=== PATIENT | female | born 1945 | race Caucasian/White ===

== ENCOUNTER 2019-01-25 22:03 | Inpatient (IN) | payer SELFPAY ==
[~2019-01-25] VITALS: Ht 160 cm; Wt 72.0 kg
[2019-01-25 23:26] LABS: BASOPHIL % 0.1 % (0-2); PLATELET COUNT 315 x10^3mcL (130-400); RED CELL DISTRIBUTION WIDTH 13.7 % (11.5-14.5)
[2019-01-25 23:28] LABS: CALCIUM 7.8 mg/dL (8.5-10.1); CARBON DIOXIDE 27.3 mmol/L (21-32); CHLORIDE SERUM 99 mmol/L (98-107); CREATININE SERUM 0.8 mg/dL (0.6-1.0); GLUCOSE SERUM 128 mg/dL (74-106); POTASSIUM SERUM 3.1 mmol/L (3.5-5.1); SODIUM SERUM 136 mmol/L (136-145)
[2019-01-25 23:33] LABS: ALT/SGPT 104 U/L (14-59); AST/SGOT 228 U/L (15-37); BILIRUBIN TOTAL 2.9 mg/dL (0.20-1.00); TOTAL PROTEIN, SERUM 6.6 g/dL (6.4-8.2)
[2019-01-25 23:37] LABS: ALBUMIN 2.5 g/dL (3.4-5.0); ALKALINE PHOSPHATASE 1335 U/L (46-116); CHOLESTEROL 133 mg/dL (<200); HDL CHOLESTEROL 14 mg/dL (40-60)
[2019-01-26 01:31] LABS: AMPHETAMINE QUAL UR NONE DETECTED (See below)
[2019-01-26 03:53] VITALS: BP 138/66
[2019-01-26 05:43] LABS: PLATELET COUNT 399 x10^3mcL (130-400); RED CELL DISTRIBUTION WIDTH 14.4 % (11.5-14.5)
[2019-01-26 05:54] LABS: CARBON DIOXIDE 24.9 mmol/L (21-32); CHLORIDE SERUM 107 mmol/L (98-107); CREATININE SERUM 0.7 mg/dL (0.6-1.0); GLUCOSE SERUM 143 mg/dL (74-106); MAGNESIUM 1.8 mg/dL (1.8-2.4); PHOSPHOROUS 3.5 mg/dL (2.5-4.9); POTASSIUM SERUM 4.3 mmol/L (3.5-5.1); SODIUM SERUM 140 mmol/L (136-145)
[2019-01-26 07:30] VITALS: BP 123/69
[2019-01-26 07:56] LABS: UA SPECIFIC GRAVITY <=1.005 (1.005-1.035); microscopic required? YES; urine erythrocyte TRACE (NEGATIVE)
[2019-01-26 08:17] VITALS: Ht 160 cm; Wt 72.0 kg
[2019-01-26 11:19] VITALS: BP 102/62
[2019-01-26 11:33] LABS: BILIRUBIN DIRECT 2.74 mg/dL (0.0-0.2)
[2019-01-26 11:36] LABS: ALBUMIN 2.1 g/dL (3.4-5.0)
[2019-01-26 12:18] LABS: BAND NEUTROPHIL 3 % (0-10); BASOPHIL 0 % (0-2); MONOCYTE 7 % (0-7); PLATELET MORPHOLOGY PLATELETS INCREASED; SEGMENTED NEUTROPHILS 85 % (37-75)
[2019-01-26 12:19] LABS: rbc morphology (normal/abnorm) ABNORMAL (NORMAL)
[2019-01-26 15:00] VITALS: BP 110/60
[2019-01-26 20:00] VITALS: BP 98/51
[2019-01-27] VITALS (7 sets, daily range): BP systolic 94–123; BP diastolic 47–56
[2019-01-27 05:46] LABS: BASOPHIL % 1.6 % (0-2); PLATELET COUNT 284 x10^3mcL (130-400); RED CELL DISTRIBUTION WIDTH 14.4 % (11.5-14.5)
[2019-01-27 05:52] LABS: CALCIUM 7.5 mg/dL (8.5-10.1); CARBON DIOXIDE 29.5 mmol/L (21-32); CHLORIDE SERUM 109 mmol/L (98-107); CREATININE SERUM 0.6 mg/dL (0.6-1.0); GLUCOSE SERUM 116 mg/dL (74-106); MAGNESIUM 1.7 mg/dL (1.8-2.4); PHOSPHOROUS 2.8 mg/dL (2.5-4.9); POTASSIUM SERUM 3.1 mmol/L (3.5-5.1); SODIUM SERUM 143 mmol/L (136-145)
[2019-01-28 05:28] VITALS: BP 113/47
[2019-01-28 06:24] LABS: BASOPHIL % 1.2 % (0-2); PLATELET COUNT 273 x10^3mcL (130-400)
[2019-01-28 06:27] LABS: RED CELL DISTRIBUTION WIDTH 14.6 % (11.5-14.5)
[2019-01-28 06:51] LABS: CALCIUM 7.8 mg/dL (8.5-10.1); CARBON DIOXIDE 26.4 mmol/L (21-32); CHLORIDE SERUM 108 mmol/L (98-107); CREATININE SERUM 0.5 mg/dL (0.6-1.0); GLUCOSE SERUM 143 mg/dL (74-106); MAGNESIUM 1.9 mg/dL (1.8-2.4); PHOSPHOROUS 3.4 mg/dL (2.5-4.9); POTASSIUM SERUM 3.5 mmol/L (3.5-5.1); SODIUM SERUM 141 mmol/L (136-145)
[2019-01-28 09:26] VITALS: BP 106/51
[2019-01-28 14:44] VITALS: BP 109/53
[2019-01-28] MEDS ORDERED: LEVOFLOXACIN500 M1 PO (15:28)
[2019-01-28 15:31] VITALS: BP 109/53
== END 2019-01-28 16:26 | disposition home or self-care (01) | DRG 871 ==
LOC: ED 22:03 → IC 01-26 01:14 → DU 01-27 17:31 → IC 01-27 17:33 → DU 01-27 18:19
PROVIDERS: Emergency Medicine; General Practice; Internal Medicine Gastroenterology; ADMIT Internal Medicine
PROC: 5A2204Z Restoration of Cardiac Rhythm, Single (ICD-10-PCS; principal; 2019-01-26)
PROC: 02HV33Z Insertion of Infusion Device into Superior Vena Cava, Percutaneous Approach (ICD-10-PCS; 2019-01-26)
PROC: B548ZZA Ultrasonography of Superior Vena Cava, Guidance (ICD-10-PCS; 2019-01-26)
PROC: 0FC98ZZ Extirpation of Matter from Common Bile Duct, Via Natural or Artificial Opening Endoscopic (ICD-10-PCS; 2019-01-27)
PROC: BF101ZZ Fluoroscopy of Bile Ducts using Low Osmolar Contrast (ICD-10-PCS; 2019-01-27)
DX: A41.9 Sepsis, unspecified organism (principal); R65.21 Severe sepsis with septic shock; K80.42 Calculus of bile duct with acute cholecystitis without obstruction; E87.6 Hypokalemia; I48.91 Unspecified atrial fibrillation; I11.9 Hypertensive heart disease without heart failure; I07.1 Rheumatic tricuspid insufficiency; K82.8 Other specified diseases of gallbladder; Z88.0 Allergy status to penicillin; Z90.49 Acquired absence of other specified parts of digestive tract
CPT/HCPCS: 43262; 82962; 87804; 97112-GP; C1769; G0378; J0282; J0330; J0696; J1610; J1956; J2001; J2060; J2250; J2370; J2405; J2704; J3010; J3480; J3490; J7030; J7040; J7042; J7050; J7060; J7120; Q0092; Q9967

== ENCOUNTER 2019-01-29 18:55 | Inpatient (IN) | payer SELFPAY ==
[~2019-01-29] VITALS: Ht 160 cm; Wt 69.9 kg
[~2019-01-29 18:55] MED LIST: LEVOFLOXACIN500 M1 PO
--- NOTE | 2019-01-29 19:56 | NUR ---
PT PRESENTS TO ED WITH C/C CALL BACK FOR + BLOOD CULTURES. INFORMATION OBTAINED FROM DAUGHTER AT BEDSIDE TO TRANSLATE. PT IS AAOX4. RESP APPEAR E/U. PT WAS JUST DC'D FROM ICU YESTERDAY FOR ADMISSION OF A-FIB WITH RVR AND HYPOTENSION. PT DENIES PAIN, DIZZINESS, GEN WEAKNESS AND ANY SYMPTOMS AT THIS TIME. CONNECTED TO MONITOR, AWAITING MSE.
--- NOTE | 2019-01-29 20:18 | NUR ---
PT INSTRUCTED TO PROVIDE URINE SAMPLE KATHIA.
--- NOTE | 2019-01-29 20:43 | NUR ---
PT AMBULATED TO RESTROOM WITH DAUGHTER. STEADY GAIT NOTED.
[2019-01-29 20:47] LABS: CALCIUM 8.3 mg/dL (8.5-10.1); CARBON DIOXIDE 32.1 mmol/L (21-32); CHLORIDE SERUM 103 mmol/L (98-107); CREATININE SERUM 0.5 mg/dL (0.6-1.0); GLUCOSE SERUM 98 mg/dL (74-106); POTASSIUM SERUM 3.7 mmol/L (3.5-5.1); SODIUM SERUM 141 mmol/L (136-145)
[2019-01-29 20:51] LABS: ALKALINE PHOSPHATASE 641 U/L (46-116); ALT/SGPT 40 U/L (14-59); AST/SGOT 15 U/L (15-37); BILIRUBIN TOTAL 0.69 mg/dL (0.20-1.00); TOTAL PROTEIN, SERUM 6.3 g/dL (6.4-8.2)
[2019-01-29 20:52] LABS: ALBUMIN 2.4 g/dL (3.4-5.0)
[2019-01-29 20:56] LABS: BASOPHIL % 0.6 % (0-2); PLATELET COUNT 419 x10^3mcL (130-400); RED CELL DISTRIBUTION WIDTH 14.5 % (11.5-14.5)
--- NOTE | 2019-01-29 20:59 | NUR ---
REPORT CALLED AND GIVEN TO GINO DUFF TO ASSUME PATIENT CARE ON MST.
[2019-01-29 21:15] LABS: microscopic required? NO
--- NOTE | 2019-01-29 21:20 | NUR ---
RECEIVED PT FROM ED VIA WHEELCHAIR BY PRIMARY NURSE ESCAMILLA, PT RECEIVED A CALL ABOUT BLOOD CULTURE RESULT. PT SEEN LYING IN BED, AAOX4. DENIES HEADACHE. STATED THAT SHE HAS MILD DIZZINESS. ABLE TO FOLLOW COMMANDS. NO SOB NOTED, HAS DRY COUGH. DENIES CHEST PAIN/PRESSURE. DENIES ABDOMINAL PAIN/NAUSEA/VOMITING. ABDOMEN IS SOFT. HAD FORMED BM YESTERDAY. VOIDS. IV SITE ON THE LAC IS PATENT AND INTACT. SIDE RAILS UPX2. CALL LIGHT ON REACH. FAMILY AT BEDSIDE. PRIMARY NURSE FRANCINE AT BEDSIDE FOR CONTINUITY OF CARE
[2019-01-29 21:43] LABS: UA SPECIFIC GRAVITY <=1.005 (1.005-1.035); urine erythrocyte NEGATIVE (NEGATIVE)
[2019-01-29 21:50] VITALS: BP 138/52
[2019-01-29 21:53] VITALS: Ht 160 cm; Wt 69.9 kg
[2019-01-29 21:59] LABS: AMPHETAMINE QUAL UR NONE DETECTED (See below)
--- NOTE | 2019-01-29 23:00 | NUR ---
PT TOLERATED MERREM WELL. NO ACUTE REACTION NOTED. PER DR POLO PT WILL CONT TO RECEIVE ANTIBIOTIC TREATMENT WITH MERREM.
--- NOTE | 2019-01-29 23:15 | NUR ---
PHARMACY CALLED REGARDING PT BEING ALLERGIC TO PNC AND ORDER FOR MERREM. PER PHARMACY PT COULD HAVE ALLERGIC REACTION TO ANTIBIOTIC DUE TO ALLERGY TO PNC. INFORMED DR GARCIA REGARDING MEDICATION. PER DR SCHULTE TO GIVE ANTIBIOTIC, WILL MONITOR PT CLOSELY.
--- NOTE | 2019-01-30 05:28 | NUR ---
PT SLEPT AT INTERVALS THROUGHOUT THE SHIFT, BREATHING EVEN AND UNLABORED ON RA. NO ACUTE CHANGES DURING SHIFT. ALLL NEEDS ASSESSED AND ATTENDED TO. NO ACUTE DISTRESS NOTED. WILL ENDORSE CARE TO AM NURSE.
[2019-01-30 05:50] VITALS: BP 118/56
[2019-01-30 06:45] LABS: CALCIUM 8.2 mg/dL (8.5-10.1); CARBON DIOXIDE 30.6 mmol/L (21-32); CHLORIDE SERUM 106 mmol/L (98-107); CREATININE SERUM 0.5 mg/dL (0.6-1.0); GLUCOSE SERUM 115 mg/dL (74-106); POTASSIUM SERUM 3.2 mmol/L (3.5-5.1); SODIUM SERUM 143 mmol/L (136-145)
--- NOTE | 2019-01-30 07:30 | NUR ---
RECEIVED REPORT FROM COMPLAINT ADJUSTER NURSE PATIENT LYING IN BED WITH DAUGHTER AT BEDSIDE. PATIENT A&O X4, IV ON LAC PATENT AND INTACT NO REDNESS OR EDEMA NOTED. PATIENT DENIES ANY PAIN AT THIS TIME. ALL QUESTIONS AND CONCERNS ADDRESSED AT THIS TIME. BED IN LOW POSITION CALL LIGHT WITHIN REACH. WILL CONTINUE TO MONITOR.
[2019-01-30 08:09] LABS: BASOPHIL % 0.5 % (0-2); PLATELET COUNT 345 x10^3mcL (130-400); RED CELL DISTRIBUTION WIDTH 14.3 % (11.5-14.5)
[2019-01-30 09:07] VITALS: BP 101/52
--- NOTE | 2019-01-30 09:42 | NUR ---
ADMINISTERED FLU SHOT PER PATIENT REQUEST IN RIGHT ARM IM. PATIENT TOLERATED WELL, NO ADVERSE REACTIONS NOTED. PATIENT SITTING UP IN BED IN NO APARENT DISTRESS. ALL NEEDS ATTENDED TO AT THIS TIME. BED IN LOW POSITION AND CALL LIGHT IS WITHIN REACH. FAMILY AT BEDSIDE. WILL CONTINUE TO MONITOR.
--- NOTE | 2019-01-30 10:15 | NUR ---
PATIENT AMBULATING IN HALLWAY WITH DAUGHTER. STEADY GAIT AND BALANCE NOTED. NO S/S OF DISTRESS.
--- NOTE | 2019-01-30 11:20 | NUR ---
ADMINISTERED K+ PO FOR LOW K+ 3.2. PATIENT TOLERATED WELL. ALL NEEDS ATTENDED TO AT THIS TIME. SAFETY PRECAUTIONS IN PLACE AND FAMILY AT BEDSIDE. WILL CONTINUE TO MONITOR.
--- NOTE | 2019-01-30 12:50 | NUR ---
PATIENT SITTING UP IN CHAIR EATING LUNCH TOLERATING DIETY WELL. NO S/S OF DISTRESS NOTED. ALL QUESTIONS AND CONCERNS ADDRESSED AT THIS TIME. BED IN LOW POSITION CALL LIGHT WITHIN REACH. FAMILY AT BEDSIDE. WILL CONTINUE TO MONITOR.
--- NOTE | 2019-01-30 14:13 | NUR ---
Discount pharmacy card and list to low cost medical clinics given to patient by Mihai Carroll.
--- NOTE | 2019-01-30 14:25 | NUR ---
PATIENT SITTING UP IN BED TALKING WITH DAUGHTER. ADMINISTERED SCHEDULED ANTIOBIOTIC IV. ADVISED PATIENT TO LET ME KNOW IF FEELINGS OF ITCHYNESS OR HIGH TEMP ALSO ADVISED DAUGHTER. NO ADVERSE AFFECTS NOTED AT THIS TIME. ALL NEEDS ATTENDED TO AT THIS TIME. BED IN LOW POSITION CALL LIGHT WITHIN REACH. WILL CONTINUE TO MONITOR.
--- NOTE | 2019-01-30 16:00 | NUR ---
PATIENT UP TO THE BATHROOM GAIT IS STEADY. NO S/S DISTRESS NOTED AT THIS TIME. PATIENT DENIES ANY PAIN. ALL NEEDS ATTENDED TO AT THIS TIME. BED IN LOW POSITION CALL LIGHT WITHIN REACH. FAMILY AT BEDSIDE. WILL CONTINUE TO MONITOR.
[2019-01-30 17:37] VITALS: BP 128/57
--- NOTE | 2019-01-30 18:29 | NUR ---
PATIENT SITTING UP IN CHAIR TALKING WITH FAMILY. NO S/S OF RESPIRATORY DISTRESS NOTED. PATIENT DENIES ANY PAIN AT THIS TIME. IV ON LAC PATENT AND INTACT. BED IN LOW POSITION CALL LIGHT WITHIN REACH. WILL ENDORSE CARE TO VAT CLEANER NURSE.
--- NOTE | 2019-01-30 19:35 | NUR ---
RECEIVED PT RESTING IN BED, NO S/S OF PAIN NOTED. AO4, DENIES ROBERTSON/DIZZINESS. MEDSURG PT, DENIES CP. PULSES PALPABLE BILAT, DENIES NUMBNESS/TINGLING IN FEET. RESP EVEN AND UNLABORED ON RA, DENIES SOB. ABD SOFT, ROUND, DENIES ABD PAIN. PT VOIDS BRP DENIES DYSURIA. GENERALIZED WEAKNESS, AMB W/ ASSISTANCE. SKIN INTACT. DENIES PAIN AT THIS TIME. IV AJ TO THE LAC PATENT, SALINE LOCKED AT THIS TIME. ALL COMFORT AND SAFETY MEASURES PROVIDED FOR, CALL LIGHT WITHIN REACH, BED IN LOWEST POSITION, WILL CONTINUE TO MONITOR.
[2019-01-30 21:00] VITALS: BP 111/59
--- NOTE | 2019-01-30 23:00 | NUR ---
UPON ROUTINE ASSESSMENT, PT SEEN RESTING IN BED, FAMILY AT BEDSIDE. ALL COMFORT AND SAFETY MEASURES PROVIDED FOR, CALL LIGHT WITHIN REACH, BED IN LOWEST POSITION, WILL CONTINUE TO MONITOR.
--- NOTE | 2019-01-31 | NUR ---
UPON ASSESSMENT OF PT, PT RESTING IN BED W/ EYES CLOSED, FAMILY MEMBER AT BEDSIDE. RESP EVEN AND UNLABORED ON RA, DENIES SOB. ALL COMFORT AND SAFETY MEASURES PROVIDED FOR, CALL LIGHT WITHIN REACH, BED IN LOWEST POSITION, WILL CONTINUE TO MONITOR.
--- NOTE | 2019-01-31 05:00 | NUR ---
PT RESTED IN INTERVALS DURING SHIFT, NO ACUTE CHANGES OCCURRING OVERNIGHT. PT AMBULATED X2 WITH FAMILY ASSISTANCE TO THE RESTROOM, ONLY TO URINATE. PT DENIES FEVER/CHILLS/N/V/D. PT REPORTS FEELING WELL, IV MERREM INFUSING PER ORDER. IV SITE REMAINS PATENT TO LAC, NO REDNESS, SWELLING OR PAIN NOTED. ALL COMFORT AND SAFETY MEASURES PROVIDED FOR, CALL LIGHT WIHTIN REACH, BED IN LOWEST POSITION, WILL CONTINUE TO MONITOR.
[2019-01-31 05:11] VITALS: BP 115/73
[2019-01-31 06:54] LABS: BASOPHIL % 0.6 % (0-2); PLATELET COUNT 372 x10^3mcL (130-400)
[2019-01-31 07:05] LABS: RED CELL DISTRIBUTION WIDTH 14.6 % (11.5-14.5)
[2019-01-31 07:10] LABS: CALCIUM 8.3 mg/dL (8.5-10.1); CARBON DIOXIDE 31.7 mmol/L (21-32); CREATININE SERUM 0.7 mg/dL (0.6-1.0); GLUCOSE SERUM 88 mg/dL (74-106); MAGNESIUM 1.8 mg/dL (1.8-2.4); PHOSPHOROUS 4.2 mg/dL (2.5-4.9)
[2019-01-31 07:19] LABS: CHLORIDE SERUM 104 mmol/L (98-107); POTASSIUM SERUM 3.7 mmol/L (3.5-5.1); SODIUM SERUM 143 mmol/L (136-145)
--- NOTE | 2019-01-31 07:25 | NUR ---
RECEIVED REPORT FROM PERFORMANCE MAKEUP ARTIST NURSE PATIENT LYING IN BED WITH FAMILY AT BEDSIDE. IV ON LFA PATENT AND INTACT NO REDNESS OR EDEMA NOTED. PATIENT DENIES ANY PAIN AT THIS TIME. ALL QUESTIONS AND CONCERNS ADDRESSED AT THIS TIME. BED IN LOW POSITION CALL LIGHT WITHIN REACH . WILL CONTINUE TO MONITOR.
--- NOTE | 2019-01-31 09:34 | NUR ---
PATIENT C/O HEADACHE 07/18 ADMINISTERED TYLENOL PO FOR MODERATE PAIN PER MAY. NO ADVERSE REACTIONS NOTED. WILL REASSESS PAIN AND CONTINUE TO MONITOR. BED IN LOW POSITION CALL LIGHT WITHIN REACH. FAMILY AT BEDSIDE.
[2019-01-31 09:42] VITALS: BP 106/54
--- NOTE | 2019-01-31 12:45 | NUR ---
PATIENT SITTING UP IN CHAIR EATING LUNCH TOLERATING DIET WELL. NO S/S OF ACUTE DISTRESS NOTED. ALL NEEDS ATTENDED TO AT THIS TIME. CALL LIGHT WITHIN REACH ALL SAFETY PRECAUTIONS IN PLACE. WILL CONTINUE TO MONITOR.
--- NOTE | 2019-01-31 14:09 | NUR ---
PATIENT C/O HEADACHE 07/18 ADMININSTERED NORCO PO PER PATIENT REQUEST FOR MODERATE PAIN. PATIENT TOLERATED WELL NO ADVERSE REACTIONS NOTED. SAFETY PRECAUTIONS IN PLACE. FAMILY AT BEDSIDE. WILL CONTINUE TO MONITOR.
--- NOTE | 2019-01-31 16:00 | NUR ---
PATIENT SHIOWERED WITH NIMISHA BERMUDEZ ASSISTANCE OK TO SHOWER PER DR MORA. PATIENT GAIT STEADY AND BALANCED. ALL NEEDS ADDRESSED AT THIS TIME. PATIENT DENIES PAIN AT THIS TIME. NO S/S OF RESPIRATORY DISTRESS. SAFETY PRECAUTIONS IN PLACE. WILL CONTINUE TO MONITOR.
[2019-01-31 16:40] VITALS: BP 114/59
--- NOTE | 2019-01-31 18:43 | NUR ---
PATIENT SITTING IN CHAIR WITH FAMILY AT BEDSIDE PATIENT DENIES ANY PAIN AT THIS TIME. NO S/S OF RESPIRATORY DISTRESS. IV ON LAC PATENT AND INTACT NO REDNESS OR EDEMA NOTED. ALL NEEDS ADDRESSED AT THIS TIME. SAFETY PRECAUTIONS IN PLACE. WILL ENDORSE CARE TO VACATION PLANNER NURSE.
--- NOTE | 2019-01-31 19:40 | NUR ---
RECEIVED REPORT FROM DAY SHIFT RN. PT RESTING IN BED. AA&O X4. NO SOB ON ROOM AIR. BREATHING EVEN AND UNLABORED. NO C/O PAIN. IV TO LAC INTACT, SALINE LOCKED. SAFETY MEASURES IN PLACE. BED IN LOWEST POSITION. SIDE RAILS UP X2. INSTRUCTED PT TO USE THE CALL LIGHT FOR ASSISTANCE. CALL LIGHT WITHIN REACH. FAMILY AT BEDSIDE.
[2019-01-31 20:40] VITALS: BP 102/45
[2019-02-01 05:52] VITALS: BP 111/53
--- NOTE | 2019-02-01 06:52 | NUR ---
PT RESTED IN LONG INTERVALS THROUGHOUT SHIFT. NO SOB ON ROOM AIR. NO C/O PAIN. NO ACUTE DISTRESS NOTED. IV TO LAC, PATENT AND INTACT. SAFETY MEASURES MAINTAINED. CALL LIGHT WITHIN REACH. FAMILY AT BEDSIDE. WILL ENDORSE CARE TO ONCOMING RN.
[2019-02-01 06:59] LABS: CALCIUM 8.3 mg/dL (8.5-10.1); CARBON DIOXIDE 31.2 mmol/L (21-32); CHLORIDE SERUM 105 mmol/L (98-107); CREATININE SERUM 0.6 mg/dL (0.6-1.0); GLUCOSE SERUM 85 mg/dL (74-106); POTASSIUM SERUM 3.7 mmol/L (3.5-5.1); SODIUM SERUM 143 mmol/L (136-145)
[2019-02-01 07:01] LABS: BASOPHIL % 0.6 % (0-2); RED CELL DISTRIBUTION WIDTH 14.4 % (11.5-14.5)
--- NOTE | 2019-02-01 07:10 | NUR ---
RECEIVED BEDSIDE REPORT FROM MICROFILM TECHNICIAN NURSE AT THIS TIME. PATIENT RESTING COMFORTABLY IN BED. FAMILY AT BEDSIDE. NO APPARENT DISTRESS OR DISCOMFORT NOTED. BREATHING EVEN AND UNLABORED. NO RESPIRATORY DISTRESS OR DISCOMFORT NOTED. PATIENT DENIES SHORTNESS OF BREATH. PATIENT DENIES CHEST PAIN/PRESSURE AT THIS TIME. IV PATENT AND INTACT. ALL QUESTIONS AND CONCERNS ADDRESSED. ALL NEEDS ATTENDED TO. CONTACT ISOLATION PRECAUTIONS IN PLACE. WILL CONTINUE TO MONITOR
[2019-02-01 07:14] LABS: PLATELET COUNT 448 x10^3mcL (130-400)
[2019-02-01 09:37] VITALS: BP 94/46
--- NOTE | 2019-02-01 09:56 | NUR ---
MEDICATION ADMINISTERED AT THIS TIME. PATIENT TOLERATED WELL. NO APPARENT ADVERSE EFFECTS NOTED. ALL NEEDS ATTENDED TO. WILL CONTINUE TO MONITOR
--- NOTE | 2019-02-01 13:00 | NUR ---
PATIENT SITTING UP IN BED EATING LUNCH AT THIS TIME. PATIENT TOLERATING DIET WELL. NO APPARENT DISTRESS NOTED. ALL NEEDS ATTENDED TO. WILL CONTINUE TO MONITOR
--- NOTE | 2019-02-01 14:58 | NUR ---
IV TO LAC INFILTRATED AT THIS TIME. IV REMOVED WITH CATH INTACT. NEW IV INSERTED TO RFA. ALL NEEDS ATTENDED TO. WILL CONTINUE TO MONITOR
[2019-02-01 16:22] VITALS: BP 117/62
--- NOTE | 2019-02-01 17:43 | NUR ---
PATIENT SITTING UP IN BED EATING DINNER AT THIS TIME. PATIENT TOLERATING DIET WELL. NO APPARENT DISTRESS OR DISCOMFORT NOTED. ALL NEEDS ATTENDED TO. WILL CONTINUE TO MONITOR
--- NOTE | 2019-02-01 18:44 | NUR ---
PATIENT RESTING COMFORTABLY IN BED AT THIS TIME. FAMILY MEMBER AT BEDSIDE. NO APPARENT DISTRESS OR DISCOMFORT NOTED. IV PATENT AND INTACT TO RFA. ALL QUESTIONS AND CONCERNS ADDRESSED. ALL NEEDS ATTENDED TO. SAFETY PRECAUTIONS MAINTAINED. WILL ENDORSE ALL CARE TO INFORMATION TECHNOLOGY ACCOUNT MANAGER NURSE
--- NOTE | 2019-02-01 19:20 | NUR ---
RECEIVED PT FROM AM NURSE, PT LAYING DOWN IN BED WITH FAMILY MEMBER AT BEDSIDE. PT AAOX4, ABLE TO FOLLOW COMMANDS AND MAKE NEEDS KNWON. PT MED-SURG, DENIES CP/PRESSURE AT THIS TIME. PALPABLE PULSES TO ALL EXTREMETIES, NO EDEMA NOTED. LUNG SOUNDS CTA, BREATHING EVEN AND UNLABORED ON RA. NO ACUTE DISTRESS NOTED. ABD SOFT AND NONDISTENDED. ACTIVE BS X4 QUAD, DENIES N/V/D. VOIDS FREELY, BRP. AMBULATORY. IV TO RFA PATENT AND INTACT. SITE FREE FROM REDNESS AND SWELLING. BED AT LOWEST SETTING. SIDE RAILS X2 UP. CALL LIGHT WITHING REACH. WILL CONT TO MONITOR.
[2019-02-01 20:04] VITALS: BP 117/61
--- NOTE | 2019-02-02 00:08 | NUR ---
PT LAYING DOWN IN BED WITH DAUGHTER AT BEDSIDE. BREATHING EVEN AND UNLABORED ON RA. NO ACUTE DISTRESS NOTED. WILL CONT TO MONITOR.
[2019-02-02 05:08] VITALS: BP 104/50
--- NOTE | 2019-02-02 06:05 | NUR ---
PT SLEPT WELL THROUGHOUT THE NIGHT, BREATHING EVEN AND UNLABORED ON RA. NO SIGNIFICANT CHANGES DURING SHIFT. ALL NEEDS ASSESSED AND ATTENDED TO. IV TO RFA INFUSING WELL. SITE FREE FROM REDNESS AND SWELLING. BED AT LOWEST SETTING. SIDE RAILS X2 UP. CALL LIGHT WITHING REACH. WILL ENDORSE CARE TO AM NURSE.
--- NOTE | 2019-02-02 07:10 | NUR ---
RECEIVED PATIENT AWAKE/ALERT IN BED, NO DISTRESS NOTED, DTR AT BEDSIDE ASSIST TRANSLATE IN URDU, NO C/O PAIN. POC EXPLAINED, CONT IV ABX . NEEDS MET. CALL LIGHT WITHIN REACH.
[2019-02-02 08:46] VITALS: BP 116/62
--- NOTE | 2019-02-02 08:54 | NUR ---
PATIENT SAT UP IN CHAIR AT THIS TIME, NO COMPLAIN, DTR REMAIN AT BEDSIDE. COLACE ADMINISTERED. DTR REQUEST BED LINENS CHANGED, NEEDS MET. CONT TO MONITOR.
--- NOTE | 2019-02-02 12:19 | NUR ---
PATIENT RESTING IN BED EYES CLOSED, DTR REMAIN AT BEDSIDE. NO NEEDS ATTENDED AT THIS TIME.
[2019-02-02 13:04] VITALS: BP 119/51
--- NOTE | 2019-02-02 14:00 | NUR ---
PATIENT UP IN CHAIR, DTR ASSIST BACK TO BED AND REPOSITION FOR COMFORT; MERREM IVPB INFUSING AT 100ML/HR TO RFA IV FLUSH WELL AND PATENT. NO NEEDS ATENDED AT THIS TIME. CONT TO MONITOR.
--- NOTE | 2019-02-02 15:36 | NUR ---
PATIENT RESTING IN BED C/O IV SITE PAIN, ASSESS SITE SWELLING NOTED, REMOVED W/ CTHETER INTACT, GAUZES APPLIED. ICE PAD APPLIED TO SITE AND ELEVATED. CONT TO MONITOR.
[2019-02-02 16:28] VITALS: BP 109/45
--- NOTE | 2019-02-02 19:40 | NUR ---
RECEIVED REPORT FROM JV CHRISTIAN. PT IS AAOX4 AND ALBANIAN SPEAKING. PT DENIES HEADACHE OR DIZZINESS AT THIS TIME. PT IS MED-SURG AND DENIES CHEST PAIN OR PRESSURE AT THIS TIME. PT PULSES ARE PALPABLE AND CAP REFILL <3 SEC. PT LUNG SOUNDS ARE CTA ON RA. PT BREATHING IS EVEN AND UNLABORED. PT DENIES SOB OR RESPIRATORY DISTRESS AT THIS TIME. PT ABD IS SOFT AND NONDISTENDED. PT BOWEL SOUNDS ARE ACTIVE X4. PT DENIES N/V/D AT THIS TIME. PT VOIDS FREELY. PT IS AMBULATORY. PT SKIN IS WARM, DRY, AND INTACT. PT IV IS PATENT, SALINE-LOCKED, AND WNL. FAMILY AT BEDSIDE. CALL LIGHT WITHIN REACH. BED IN LOWEST POSITION. SIDE RAILS X2 UP. WILL CONTINUE TO MONITOR.
[2019-02-02 20:56] VITALS: BP 97/56
--- NOTE | 2019-02-03 02:30 | NUR ---
PT SLEEPING. PT BREATHING EVEN AND UNLABORED. FAMILY AT BEDSIDE. NO ACUTE DISTRESS NOTED. CALL LIGHT WITHIN REACH. BED IN LOWEST POSITION. SIDE RAILS X2 UP. WILL CONTINUE TO MONITOR.
--- NOTE | 2019-02-03 04:00 | NUR ---
PT SLEEPING. PT BREATHING EVEN AND UNLABORED. NO ACUTE DISTRESS NOTED. FAMILY AT BEDSIDE. CALL LIGHT WITHIN REACH. BED IN LOWEST POSITION. SIDE RAILS X2 UP. WILL CONTINUE TO MONITOR.
--- NOTE | 2019-02-03 05:15 | NUR ---
PT SLEPT THROUGHOUT THE NIGHT. PT COMPLIED WITH NURSING CARE THROUGHOUT THE SHIFT. NO ACUTE DISTRESS NOTED DURING THE SHIFT. COMFORT AND SAFETY MEASURES MAINTAINED DURING THE SHIFT. ALL NEEDS AND CONCERNS ADDRESSED. WILL ENDORSE CARE TO DAY SHIFT NURSE.
[2019-02-03 06:05] VITALS: BP 105/54
[2019-02-03 06:36] LABS: BASOPHIL % 0.9 % (0-2); RED CELL DISTRIBUTION WIDTH 14.5 % (11.5-14.5)
[2019-02-03 06:45] LABS: PLATELET COUNT 401 x10^3mcL (130-400)
--- NOTE | 2019-02-03 07:17 | NUR ---
ENDORSED CARE TO DAVIAN CHRISTIAN. ALL QUESTIONS AND CONCERNS ADDRESSED.
[2019-02-03 07:35] LABS: CALCIUM 8.3 mg/dL (8.5-10.1); CARBON DIOXIDE 30.2 mmol/L (21-32); CHLORIDE SERUM 106 mmol/L (98-107); CREATININE SERUM 0.6 mg/dL (0.6-1.0); GLUCOSE SERUM 92 mg/dL (74-106); MAGNESIUM 2.1 mg/dL (1.8-2.4); PHOSPHOROUS 3.2 mg/dL (2.5-4.9); POTASSIUM SERUM 3.9 mmol/L (3.5-5.1); SODIUM SERUM 143 mmol/L (136-145)
--- NOTE | 2019-02-03 08:00 | NUR ---
RECEIVED PATIENT SITTING UP IN CHAIR AT BEDSIDE AND TOLERATED DIET AND FLUIDS WELL. DAUGHTER AT BEDSIDE AND PATIENT DENIES PAIN AT THIS TIME. IV INTACT AND COMPLETED THE MERRIN AND HEPLOCKED INDICATED. LUNGS ARE DIMINISHED BOWEL SOUNDS ACTIVE AND ABDOMEN IS DITENDED BUT SOFT. PATIENT HAS BEEN AMBULATING DENIES ANY ACUTE DISCOMFORT OR PAIN AT THIS ITME. VITALS ARE AT 97.8, 71, 18, 105/54, 99% ON ROOMAIR. BARRETT HAS NOTED LAB OF CA AT 8.3AND EVERYTHING ELSE IS GOOD ON THE LABS. BARRETT WIHT HISTORY OF AFIB, GALLSTONES AND RECENT ERCP AND REMOVEL OF STONE THIS ADMISSION. SHE HAS HX OF CHOLECYSTITIS. 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
[2019-02-03 09:26] VITALS: BP 111/61
--- NOTE | 2019-02-03 13:57 | NUR ---
PATIENT DENIES PAIN AND HAS BEEN UP TO CHAIR AND IS WANTING TO GO HOME. HANGIN THE NEXT DOSING OF MERRIN ORDERED.
--- NOTE | 2019-02-03 14:45 | NUR ---
STILL WITH NO COMPLAINTS OF PAIN OR DISCOMFORT. GIVING THE MERRIN ORDERED AND HAS NOT COMPLAINED OF ANY ADVERSE REACTION. SHE HAS INDICATED SHE WANTS TO HOME AND EXPLAINED ABOUT THE INDICATION FOR STAYING WITH THE DAUGHTER AT BEDSIDE INTERPRETING FOR STAFF. SHE IS CONTENT FOR NOW. TOLERATED DIET AND AMBULATION WELL.
[2019-02-03 17:15] VITALS: BP 106/37
--- NOTE | 2019-02-03 18:06 | NUR ---
BLOOD PRESSURE LOW BUT PATIENT REMAINS ASYMPTOMATIC AT THIS TIME. DAUGHTER AT BEDSIDE AND ATTENTIVE WITH CARE. TOLERATED DIET WELL. NO NAUSEA NOTED.
--- NOTE | 2019-02-03 19:30 | NUR ---
RECEIVED PT SITTING ON THE CHAIR. SHE IS ALERT,ORIENTED X4. DAUGHTER AT BEDSIDE. W/ CLEAR BREATH SOUNDS NOTED. SHE HAS NO C/O PAIN AT THIS TIME. HL TO LT WRIST INTACT. CALL LIGHT W/IN REACH.
[2019-02-03 20:27] VITALS: BP 108/63
--- NOTE | 2019-02-04 03:16 | NUR ---
PT APPEARS TO BE SLEEPING COMFORTABLY. DAUGHTER AT BEDSIDE.
--- NOTE | 2019-02-04 05:32 | NUR ---
PT SLEPT THROUGH THE NIGHT. SHE HAD NO C/O PAIN SHE REMAINS ALERT AND ORIENTED X4. SHE AMBULATES W/ SETADY GAIT. DUE IV ANTIBIOTICS GIVEN. IV SITE TO LT WRIST W/ NO S/S OF INFILTRATION. ALL NEEDS ATTENDED TO . CONTACT ISOLATION MAINTAINED. PT'S DAUGHTER STAYED OVERNIGHT.
[2019-02-04 06:10] VITALS: BP 97/48
[2019-02-04 06:31] LABS: BASOPHIL % 0.6 % (0-2); PLATELET COUNT 388 x10^3mcL (130-400)
[2019-02-04 06:39] LABS: RED CELL DISTRIBUTION WIDTH 14.7 % (11.5-14.5)
[2019-02-04 06:45] LABS: CALCIUM 8.4 mg/dL (8.5-10.1); CARBON DIOXIDE 31.6 mmol/L (21-32); CHLORIDE SERUM 104 mmol/L (98-107); CREATININE SERUM 0.6 mg/dL (0.6-1.0); GLUCOSE SERUM 78 mg/dL (74-106); MAGNESIUM 2.1 mg/dL (1.8-2.4); PHOSPHOROUS 3.5 mg/dL (2.5-4.9); POTASSIUM SERUM 4.1 mmol/L (3.5-5.1); SODIUM SERUM 141 mmol/L (136-145)
--- NOTE | 2019-02-04 08:00 | NUR ---
RECEIVED PATIENT WHO HAS FAMILY AT BEDSIDE. SHE HAS CONTINUED TO DENY DISTRESS OR NAUSEA AND HAS BEEN TOLERATINMG DIET AND FLUIDS WELL. SHE IS AMBUALTORY AND NO FEVER AND VITALS AT THIS TIME AT 98.1, 65, 18, 97/48, 97% ON ROOM AIR. PATIENT HAS BEEN ON MERRIN AND NO ADVERSE REACTION REPORTED. SHE HAS MOVED HER BOWELS AND HAS NOTED MILD PERSISTANT ATELECTASIS OF THE BOTH LUNG BASES AND AND NO COUGH OR ANY RALES HAVE BEEN HEARD. PATIENT IS AMBULATOYR AND HAS HX OF AFIB, HTN, APPENDECTOMY AND GALLSTONES. SHE HAS HAS A ERCP WITH SPINCTEROTOMY AND A REMOVAL OF A GALLSTONE AND SHE HAS BEEN ANXIOUS TO GO HOME. PER THE REPORTS SHE HAS HAS BACTERIA IN THE BLOOD AND WAS CALLED BACK TO THE HOSPITAL FOR TREATMENT. WILL CONTINUE TO MONITOR INDICATED. IV INTACT AND HEPLOCKED AT THIS TIME.
[2019-02-04 09:27] VITALS: BP 103/55
--- NOTE | 2019-02-04 17:59 | NUR ---
LA NENA GIVEN CARAFATE ADN THE REGLAN ORDERED. SHE IS MORE INTERESTED IN EATTING A REGULAR DIET AT THIS TIME. SHE HAS SO FAR TOLERATED THE DIET OFFERED.
[2019-02-04 18:23] VITALS: BP 103/57
[2019-02-04 19:15] VITALS: BP 116/52
--- NOTE | 2019-02-04 19:30 | NUR ---
RECEIVED PT IN BED RESTING QUIETLY W/ A FAMILY MEMBER AT BEDSIDE VISITING. SHE IS ALERT,ORIENTED X4. SHE DENIED PAIN. N0 SOB ON ROOM AIR. NO C/O ABDL DISCOMFORT. W/ HL TO LT WRIST INTACT. CALL LIGHT W/IN REACH.
--- NOTE | 2019-02-05 02:35 | NUR ---
PT CALM AND APPEARS TO BE SLEEPING COMFORTABLY.
--- NOTE | 2019-02-05 05:20 | NUR ---
PT SLEPT THROUGH THE NIGHT. SHE REMAINS IN STABLE CONDITION, ALERT AND ORIENTED X4. SHE HAD NO C/O PAIN . DUE IV MEDS ADMINISTERED ORDERED. IV SITE TO LT WRIST FREE OF S/S OF INFILTRATION. ALL NEEDS ATTENDED TO. CONTACT ISOLATION MAINTAINED. PT'S DAUGHTER AT BEDSIDE.
[2019-02-05 05:21] VITALS: BP 92/47
[2019-02-05 06:14] LABS: PLATELET COUNT 388 x10^3mcL (130-400)
[2019-02-05 06:15] LABS: BASOPHIL % 3.7 % (0-2); RED CELL DISTRIBUTION WIDTH 14.6 % (11.5-14.5)
[2019-02-05 06:32] VITALS: BP 96/47
[2019-02-05 06:37] LABS: CALCIUM 8.4 mg/dL (8.5-10.1); CARBON DIOXIDE 29.1 mmol/L (21-32); CHLORIDE SERUM 105 mmol/L (98-107); CREATININE SERUM 0.6 mg/dL (0.6-1.0); GLUCOSE SERUM 88 mg/dL (74-106); PHOSPHOROUS 3.6 mg/dL (2.5-4.9); POTASSIUM SERUM 3.9 mmol/L (3.5-5.1); SODIUM SERUM 141 mmol/L (136-145)
[2019-02-05 07:50] VITALS: BP 110/71; BP 96/47
--- NOTE | 2019-02-05 08:00 | NUR ---
SHIFT ASSESSMENT DONE. PATIENT A/A/OX4; NO RESP DISTRESS ON RA. HR = 78; DENIED CHEST PAIN. AMBULATORY. SKIN INTACT. TOLERATED CARDIAC DIET. IVHL'D TO L WRIST. DENIED ANY PAIN. DAUGHTER AT BED SIDE.
[2019-02-05 08:26] VITALS: BP 110/71
[2019-02-05 17:08] VITALS: BP 126/63
--- NOTE | 2019-02-05 17:20 | NUR ---
IV TO L WRIST INFILTRATED AND D/C'D. NEW IV INSERTED TO RT HAND W/ 24G NEEDLE FOR ABX.
--- NOTE | 2019-02-05 18:38 | NUR ---
PATIENT FINISHED MERREEN TREATMENT. D/C TO HOME PER ORDER. INSTRUCTION GIVEN TO PATIENT'S DAUGHTER. IV TO R HAND D/C'D. CONDITION STABLE.
== END 2019-02-05 18:48 | disposition home or self-care (01) | DRG 872 ==
LOC: ED 18:55 → MU 20:13
PROVIDERS: Emergency Medicine; Internal Medicine; ADMIT General Practice
DX: A41.51 Sepsis due to Escherichia coli [E. coli] (principal); E44.0 Moderate protein-calorie malnutrition; Z16.12 Extended spectrum beta lactamase (ESBL) resistance; I10 Essential (primary) hypertension; I48.91 Unspecified atrial fibrillation; E83.51 Hypocalcemia; R74.0 Nonspecific elevation of levels of transaminase and lactic acid dehydrogenase [LDH]; Z88.0 Allergy status to penicillin; Z23 Encounter for immunization; Z68.27 Body mass index [BMI] 27.0-27.9, adult; Z79.899 Other long term (current) drug therapy
CPT/HCPCS: 90658; G0378; J0696; J2185; J7040; J7060; Q0092